=== PATIENT | male | born 1965 | race Hispanic/Latino ===

== ENCOUNTER 2024-03-27 13:32 | Emergency (ER) | payer OTHER ==
[2024-03-27] MEDS ORDERED: Lidocaine 1% MPF 2 ML VIAL ONE (14:35)
[2024-03-27] MEDS ORDERED: cefTRIAXone (ROCEPHIN) 1 GM VIAL ONE (14:35)
[2024-03-27] MEDS ORDERED: Boostrix 0.5 ML (Tdap) VIAL (>/=7 yrs of age) ONE (14:36)
== END 2024-03-27 15:04 | disposition home or self-care (01) ==
LOC: ERS 13:32
DX: S91.332A Puncture wound without foreign body, left foot, initial encounter (principal); E11.9 Type 2 diabetes mellitus without complications; W45.0XXA Nail entering through skin, initial encounter; Y99.0 Civilian activity done for income or pay; Z79.84 Long term (current) use of oral hypoglycemic drugs; Z75.8 Other problems related to medical facilities and other health care; Z23 Encounter for immunization
CPT/HCPCS: 36416; 90471; 90715; 96372; J0696